=== PATIENT | male | born 1960 | race Caucasian/White ===

== ENCOUNTER 2018-07-24 16:24 | Inpatient (IN) | payer MEDICARE, MEDICAID ==
[~2018-07-24] VITALS: Ht 167.6 cm; Wt 59.6 kg
[2018-07-24 21:49] LABS: HEMATOCRIT. 49.9 % (42.0-52.0); HEMOGLOBIN. 17.4 g/dL (14.0-18.0); MEAN CORPUSCULAR HEMOGLOBIN 33.4 pg (28.0-32.0); MEAN CORPUSCULAR VOLUME 96.2 fL (80.0-94.0); MEAN PLATELET VOLUME 8.6 fl (7.4-10.4); RED BLOOD CELL COUNT 5.19 mill/uL (4.7-6.1)
[2018-07-24 21:54] LABS: CHLORIDE 113 mEq/L (98-107)
[2018-07-24 21:58] LABS: ETHANOL BLOOD < 10 mg/dL
[2018-07-24 22:22] LABS: PLATELET ESTIMATE NORMAL
[2018-07-24 22:24] LABS: PLATELET 153 x1000/uL (130-400)
[2018-07-24] MEDS ORDERED: HYDROCODONE/ACETAMINOPHEN 5/325MG TABLET PO STA (23:15)
[2018-07-25 00:21] LABS: BASOPHILS % 0.2 % (0.0-2.0); EOSINOPHILS % 0.1 % (0.0-5.0); HEMATOCRIT. 49.3 % (42.0-52.0); LYMPHOCYTES % 8.7 % (20.0-50.0); MEAN CORPUSCULAR HEMOGLOBIN 33.1 pg (28.0-32.0); MEAN CORPUSCULAR VOLUME 95.7 fL (80.0-94.0); MEAN PLATELET VOLUME 8.9 fl (7.4-10.4); MONOCYTES % 6.8 % (2.0-8.0); NEUTROPHILS % 84.2 % (40.0-76.0); PLATELET 144 x1000/uL (130-400); RED BLOOD CELL COUNT 5.15 mill/uL (4.7-6.1); RED CELL DISTRIBUTION WIDTH 12.6 % (11.6-14.6)
[2018-07-25 00:27] LABS: CHLORIDE 112 mEq/L (98-107)
[2018-07-25 00:36] LABS: ETHANOL BLOOD < 10 mg/dL
[2018-07-25 01:40] LABS: CLARITY URINE CLOUDY (CLEAR); COLOR URINE DARK YELLOW (YELLOW); KETONES URINE TRACE (NEGATIVE); LEUKOCYTE ESTERASE URINE NEGATIVE (NEGATIVE); NITRITE URINE NEGATIVE (NEGATIVE); OCCULT BLOOD URINE NEGATIVE (NEGATIVE); PH URINE 5.5 (4.5-8.0); PROTEIN URINE 1+ (NEGATIVE); SPECIFIC GRAVITY URINE 1.032 (1.005-1.030)
[2018-07-25 01:53] LABS: *AMPHETAMINES SCREEN URINE NEGATIVE (NEGATIVE); *BARBITURATES SCREEN URINE NEGATIVE (NEGATIVE); *BENZODIAZEPINES SCREEN URINE NEGATIVE (NEGATIVE); *COCAINE SCREEN URINE NEGATIVE (NEGATIVE); METHADONE URINE SCREEN NEGATIVE (NEGATIVE)
[2018-07-25 01:54] LABS: CANNABINOID URINE SCREEN PRESUMTIVE POSITIVE (NEGATIVE); OPIATES URINE SCREEN PRESUMTIVE POSITIVE (NEGATIVE); PHENCYCLIDINE URINE SCREEN NEGATIVE (NEGATIVE)
[2018-07-25] MEDS ORDERED: AZITHROMYCIN 500 MG in DEXT 5% WATER 250 ML IV NR (03:15)
[2018-07-25] MEDS ORDERED: CEFTRIAXONE 1 G PREMIX 50 ML IV NR (03:15)
[2018-07-25] MEDS ORDERED: CLONIDINE 0.1MG TABLET PO PRN (09:00)
[2018-07-25] MEDS ORDERED: GUAIFENESIN 200MG/10ML SUGAR FREE UDC PO PRN (09:00)
[2018-07-25] MEDS ORDERED: MAGNESIUM/ALUMINUM HYDROXIDE/SIMETHICONE 30ML UDC PO PRN (09:00)
[2018-07-25] MEDS ORDERED: ACETAMINOPHEN 325MG TABLET PO PRN (09:00)
[2018-07-25] MEDS ORDERED: DIPHENHYDRAMINE 50MG/ML VIAL IV PRN (09:00)
[2018-07-25] MEDS ORDERED: DOCUSATE SODIUM 100MG CAPSULE PO PRN (09:00)
[2018-07-25] MEDS ORDERED: ONDANSETRON HCL 4MG/2ML INJ IV PRN (09:00)
[2018-07-25] MEDS ORDERED: IPRATROPIUM/ALBUTEROL 0.5-3(2.5)MG/3ML NEB INH PRN (09:00)
[2018-07-25] MEDS: HYDROCODONE/ACETAMINOPHEN 5/325MG TABLET PO PRN ×3 (09:49→20:33)
[2018-07-25 16:42] VITALS: BP 161/77
[2018-07-25] MEDS: ENOXAPARIN 40MG/0.4ML SYR SUBCUT SCH (17:50)
[2018-07-25 20:00] VITALS: BP 130/81
[2018-07-25] MEDS: SODIUM CHLORIDE 0.45% 1,000 ML IV SCH (20:43)
[2018-07-25] MEDS ORDERED: NA PHOS,M-B/NA PHOS,DI-BA ENEMA 118ML PR PRN (21:00)
[2018-07-25] MEDS: LORAZEPAM 2MG/ML CPJ IV PRN (23:54)
[2018-07-26] VITALS: BP 109/77
[2018-07-26] MEDS: MORPHINE SULFATE 10MG/5ML ORAL SOLN UDC PO PRN ×4 (00:42→20:18)
[2018-07-26 04:00] VITALS: BP 121/67
[2018-07-26] MEDS: HYDROCODONE/ACETAMINOPHEN 5/325MG TABLET PO PRN (05:50)
[2018-07-26 08:00] VITALS: BP 106/69
[2018-07-26] MEDS ORDERED: ASPIRIN 81MG EC TABLET PO SCH (09:00)
[2018-07-26] MEDS: ASPIRIN 81MG TABLET PO SCH (10:14)
[2018-07-26 11:43] LABS: BASOPHILS % 0.8 % (0.0-2.0); EOSINOPHILS % 1.8 % (0.0-5.0); HEMATOCRIT. 46.8 % (42.0-52.0); HEMOGLOBIN. 16.5 g/dL (14.0-18.0); LYMPHOCYTES % 35.5 % (20.0-50.0); MEAN CORPUSCULAR HEMOGLOBIN 33.6 pg (28.0-32.0); MEAN CORPUSCULAR VOLUME 94.9 fL (80.0-94.0); MEAN PLATELET VOLUME 9.1 fl (7.4-10.4); MONOCYTES % 12.2 % (2.0-8.0); NEUTROPHILS % 49.7 % (40.0-76.0); PLATELET 133 x1000/uL (130-400); RED BLOOD CELL COUNT 4.93 mill/uL (4.7-6.1); RED CELL DISTRIBUTION WIDTH 12.5 % (11.6-14.6)
[2018-07-26 11:52] LABS: CHLORIDE 112 mEq/L (98-107)
[2018-07-26 12:00] VITALS: BP 113/75
[2018-07-26 12:00] LABS: CREATINE KINASE MB FRACTION 1.6 ng/mL (0.5-3.6)
[2018-07-26 12:01] LABS: LDL CHOLESTEROL 97 mg/dL (5-100)
[2018-07-26 12:02] LABS: CREATINE KINASE 145 IU/L (39-308); HDL CHOLESTEROL 40 mg/dL (40-59)
[2018-07-26] MEDS ORDERED: MVI, ADULT NO.1 10 ML in SODIUM CHLORIDE 0.9% 1,000 ML IV NR ×2 (13:00)
[2018-07-26 16:00] VITALS: BP 107/65
[2018-07-26] MEDS: ENOXAPARIN 40MG/0.4ML SYR SUBCUT SCH (17:26)
[2018-07-26] MEDS: LORAZEPAM 2MG/ML CPJ IV PRN (17:26)
[2018-07-26 20:00] VITALS: BP 111/73
[2018-07-26] MEDS: BUDESONIDE 0.5MG/2ML NEB HHN SCH (21:02)
[2018-07-27] VITALS: BP 99/64
[2018-07-27] MEDS: SODIUM CHLORIDE 0.45% 1,000 ML IV SCH (01:50)
[2018-07-27] MEDS: HYDROCODONE/ACETAMINOPHEN 5/325MG TABLET PO PRN ×2 (03:10→20:10)
[2018-07-27 04:00] VITALS: BP 110/58
[2018-07-27 08:00] VITALS: BP 133/86
[2018-07-27] MEDS: BUDESONIDE 0.5MG/2ML NEB HHN SCH ×2 (08:52→20:18)
[2018-07-27] MEDS: ASPIRIN 81MG TABLET PO SCH (09:00)
[2018-07-27] MEDS: MORPHINE SULFATE 10MG/5ML ORAL SOLN UDC PO PRN ×2 (09:05→15:04)
[2018-07-27] MEDS: LORAZEPAM 2MG/ML CPJ IV PRN ×2 (10:40→17:04)
[2018-07-27] MEDS ORDERED: POTASSIUM CHLORIDE 20MEQ TABLET SR PO NR (11:15)
[2018-07-27 12:00] VITALS: BP 111/65
[2018-07-27 16:00] VITALS: BP 118/73
[2018-07-27] MEDS: ENOXAPARIN 40MG/0.4ML SYR SUBCUT SCH (17:04)
[2018-07-27 21:03] VITALS: BP 113/73
== END 2018-07-27 22:17 | disposition home or self-care (01) | DRG 682 ==
LOC: ER 16:38 → 5WST 07-25 02:59 → EDBEDREQDT 07-25 03:03 → EDBEDREQTM 07-25 03:03 → EDBEDREQ 07-25 03:03 → ENRESERV 07-25 14:20
PROVIDERS: ADMIT Internal Medicine; ATTEND Internal Medicine
DX: N17.0 Acute kidney failure with tubular necrosis (principal); J96.00 Acute respiratory failure, unspecified whether with hypoxia or hypercapnia; J44.0 Chronic obstructive pulmonary disease with (acute) lower respiratory infection; R07.89 Other chest pain; E87.6 Hypokalemia; E86.0 Dehydration; F20.9 Schizophrenia, unspecified; G89.29 Other chronic pain; I12.9 Hypertensive chronic kidney disease with stage 1 through stage 4 chronic kidney disease, or unspecified chronic kidney disease; I25.10 Atherosclerotic heart disease of native coronary artery without angina pectoris; B19.20 Unspecified viral hepatitis C without hepatic coma; M47.812 Spondylosis without myelopathy or radiculopathy, cervical region; M50.30 Other cervical disc degeneration, unspecified cervical region; N18.9 Chronic kidney disease, unspecified; W06.XXXA Fall from bed, initial encounter; Z86.73 Personal history of transient ischemic attack (TIA), and cerebral infarction without residual deficits; I25.2 Old myocardial infarction; Z87.440 Personal history of urinary (tract) infections; Y93.89 Activity, other specified; Y92.092 Bedroom in other non-institutional residence as the place of occurrence of the external cause; Y99.8 Other external cause status; Z88.8 Allergy status to other drugs, medicaments and biological substances; M94.0 Chondrocostal junction syndrome [Tietze]
CPT/HCPCS: 36415; 71045; 80061; 80305; 82550; 82553; 83036; 83605; 83880; 84439; 84443; 84484; 85379; 93005; 93306; 93970; 96365; 99285; C1893; G0482; J0456; J0696; J1650; J2060; J3490; J7030; J7060; J7620; J7626